=== PATIENT | female | born 1965 | race Caucasian/White ===

== ENCOUNTER 2018-12-12 23:14 | Inpatient (IN) ==
[2018-12-12] MEDS ORDERED: NITROGLYCERIN SL 0.4 MG/TAB TAB SL PRN (23:32)
[2018-12-12] MEDS ORDERED: ASPIRIN CHEW 324 MG PO STA (23:32)
[2018-12-12] MEDS ORDERED: SODIUM CHLORIDE 0.9% 500 ML IV SCH (23:45)
[2018-12-12 23:48] LABS: Basophils # (auto) 0.02 K/uL (0-0.2); Basophils % (auto) 0.2 %; Eosinophils # (auto) 0.05 K/uL (0-0.5); Eosinophils % (auto) 0.6 %; Hematocrit (blood only) 42.9 % (37-47); Hemoglobin 15.6 g/dL (12.0-16.0); Immature Granulocytes # (auto) 0.02 K/uL (0.00-0.02); Immature Granulocytes % (auto) 0.2 %; Lymphocytes # (auto) 1.51 K/uL (1.2-3.4); Mean Corpuscular Hgb Conc 36.4 g/dL (32-36); Mean Corpuscular Volume 88.8 fL (80-100); Mean Platelet Volume 10.9 fL (7.4-10.4); Monocytes # (auto) 1.07 K/uL (0.11-0.59); Monocytes % (auto) 12.1 %; Neutrophils # (auto) 6.19 K/uL (1.4-6.5); Neutrophils % (auto) 69.9 %; Platelet Count 301 K/uL (130-400); RDW Coefficient of Variation 12.5 % (11.5-14.5); RDW Standard Deviation 40.1 fL (36.4-46.3); Red Blood Count 4.83 M/uL (4.2-5.4); White Blood Count 8.86 K/uL (4.8-10.8)
[2018-12-13 00:17] LABS: Alanine Aminotransferase 22 U/L (12-78); Albumin Level 4.7 gm/dl (3.4-5.0); Aspartate Aminotransferase 13 U/L (15-37); BUN Creatinine Ratio 13.3 (10-20); Blood Urea Nitrogen 31 mg/dl (7-18); Calcium 9.4 mg/dl (8.5-10.1); Carbon Dioxide 21 mmol/L (21-32); Chloride 111 mmol/L (98-107); Creatinine Clr Calc Pharmacy 25.2 ml/min; Est GFR (African American) 26.9; Est GFR (Non-African American) 23.2; Glucose 130 mg/dl (70-99); Magnesium 2.2 mg/dl (1.8-2.4); Potassium 2.5 mmol/L (3.5-5.1); Sodium 139 mmol/L (136-145)
[2018-12-13] MEDS ORDERED: POTASSIUM CHLORIDE 10 MEQ TABCR PO STA (00:21)
[2018-12-13 00:26] LABS: Albumin Globulin Ratio 1.3 (0.9-2); Alkaline Phosphatase 93 U/L (45-117); Bilirubin,Total 0.7 mg/dl (0.2-1); Creatine Kinase 184 U/L (26-192); Globulin 3.7 gm/dl (2.5-4.0); Total Protein 8.4 gm/dl (6.4-8.2); Troponin I < 0.015 ng/ml (0-0.045)
[2018-12-13 00:48] LABS: Lyme Ab IgG w/WB Rflx Negative (Negative); Lyme Ab IgM w/WB Rflx Negative (Negative)
--- NOTE | 2018-12-13 00:52 | Emergency Department Note ---
History of Present Illness General Chief complaint: Cardiac Assessment Stated complaint: LIGHTHEADED, DIARRHEA, HEAVY CHEST, VOMITING History of Present Illness Maximum Pain Intensity: 3 This 53 yo presents to the ER complaining of chest pain, palpitations, nausea, vomiting and diarrhea Location: Generalized Quality: Weak Severity: Moderate Duration: Past few days Timing: Started a few days ago Context: Chest pain started today and patient came in Modifying factors: better with rest; worse with activity Patient states when she walks she develops chest pain. This resolves with rest. Patient took Imodium today and the diarrhea has subsided. Patient one episode of vomiting. Patient denies abdominal pain, diaphoresis, fevers, flulike illness. Patient has a history of Lyme's disease. She is worried she has this again. She continues to smoke. She has not seen a doctor in quite some time. Home Medications Home Medications Medication Instructions Recorded Confirmed Type No Known Home Medications 12/13/18 12/13/18 History Allergies Allergy/AdvReac Type Severity Reaction Status Date / Time gluten Allergy Mild intolerance Verified 12/13/18 00:53 Past Med/Surg History Medical History H/O: hysterectomy Social History Preferred Language: Maldivian Feels Safe at Home: Yes Smoking Status: Current every day smoker Review of Systems All systems reviewed & are unremarkable except as noted in HPI & below Physical Exam Vital Signs Vital Signs - 24 hr 12/12/18 23:30 12/12/18 23:43 12/13/18 00:13 Temperature 36.9 C Temperature Source Oral Sepsis Recent Fever Within 48 Hours No Sepsis Action Taken by Nursing No Action Required Pulse Rate 77 Pulse Rate [Right Finger] 73 Pulse Rhythm Regular Pulse Rhythm [Right Finger] Regular Pulse Strength Normal Pulse Strength [Right Finger] Normal Respiratory Rate 20 20 Respiratory Effort / Characteristics Non-Labored Spontaneous Non-Labored Spontaneous Respiratory Depth Normal Normal Respiratory Pattern Regular Regular Blood Pressure 135/77 Blood Pressure [Right Arm] 135/77 Blood Pressure Mean 96 Blood Pressure Mean [Right Arm] 96 Pulse Oximetry 98 98 99 Oxygen Delivery Method Room Air Room Air Room Air VITALS: Vitals are noted on the nurse's note and reviewed by myself. Vital signs stable. GENERAL: White female, in no acute distress, nondiaphoretic, well-developed well-nourished. SKIN: The skin was without rashes, erythema, edema, or bruising. There is no tenting of the skin. Capillary reflex less than 2 seconds. HEAD: Normocephalic atraumatic. EARS: External auditory canals clear, tympanic membranes pearly díaz without erythema or effusion bilaterally. EYES: Pupils equal round and reactive to light and accommodation. Conjunctivae without injection, sclerae without icterus. Extraocular movements intact. NOSE: Patent, turbinates without inflammation or discharge. No sinus tenderness. MOUTH: Mucous membranes mildly dry. Pharynx without erythema or exudate. Uvula midline. Airway patent. Tongue does not deviate. NECK: Supple without nuchal rigidity. No lymphadenopathy. No thyromegaly. Cervical spine is nontender. No JVD. HEART: Regular rate and rhythm; chest nontender to palpation LUNGS: Clear to auscultation bilaterally without wheezes, rales or rhonchi. No retractions or accessory muscle use. ABDOMEN: Positive bowel sounds x 4. Normal tympanic percussion. Soft, nontender, without masses or organomegaly. Olmos sign negative. No guarding or rebound tenderness. No CVA tenderness MUSCULOSKELETAL: No muscle atrophy, erythema, or edema noted. NEURO: Patient was alert and oriented to person place and time. Normal sensation to light and sharp touch. No focal neurological deficits. Course Administered Medications Nitroglycerin (Nitrostat) 0.4 mg SL UD PRN PRN Reason: Chest Pain Stop: 01/11/19 23:31 Last Admin: 12/12/18 23:49 Dose: 0.4 mg Documented by: [id number] Discontinued Medications Aspirin (Aspirin) 324 mg PO NOW STA Stop: 12/12/18 23:33 Last Admin: 12/12/18 23:49 Dose: 324 mg Documented by: [id number] Sodium Chloride (Nss) 500 mls @ 999 mls/hr IV .Q31M KATTY Stop: 12/13/18 00:15 Last Infusion: 12/13/18 00:21 Dose: 0 mls/hr Documented by: [id number] Admin: 12/12/18 23:49 Dose: 999 mls/hr Documented by: [id number] Potassium Chloride (Klor-Con M10) 40 meq PO NOW STA Stop: 12/13/18 00:22 Last Admin: 12/13/18 00:26 Dose: 40 meq Documented by: [id number] Medical Decision Making Medical Records Attestation: I reviewed the patient's medical records. Home Medications Current Medication List: was personally reviewed by me Laboratory Data Attestation: I reviewed the patient's lab results. Result diagrams: 12/12/18 23:36 12/12/18 23:36 Lab Results 12/12/18 12/12/18 12/12/18 Range/Units 23:36 23:36 23:36 WBC 8.86 (4.8-10.8) K/uL RBC 4.83 (4.2-5.4) M/uL Hgb 15.6 (12.0-16.0) g/dL Hct 42.9 (37-47) % MCV 88.8 (80-100) fL MCH 32.3 (25-34) pg MCHC 36.4 H (32-36) g/dL RDW Std Deviation 40.1 (36.4-46.3) fL RDW Coeff of Andrea 12.5 (11.5-14.5) % Plt Count 301 (130-400) K/uL MPV 10.9 H (7.4-10.4) fL Immature Gran % (Auto) 0.2 % Neut % (Auto) 69.9 % Lymph % (Auto) 17.0 % [place] % (Auto) 12.1 % Eos % (Auto) 0.6 % Baso % (Auto) 0.2 % Immature Gran # (Auto) 0.02 (0.00-0.02) K/uL Neut # (Auto) 6.19 (1.4-6.5) K/uL Lymph # (Auto) 1.51 (1.2-3.4) K/uL [place] # (Auto) 1.07 H (0.11-0.59) K/uL Eos # (Auto) 0.05 (0-0.5) K/uL Baso # (Auto) 0.02 (0-0.2) K/uL Sodium 139 (136-145) mmol/L Potassium 2.5 L* (3.5-5.1) mmol/L Chloride 111 H (98-107) mmol/L Carbon Dioxide 21 (21-32) mmol/L Anion Gap 6.0 (3-11) BUN 31 H (7-18) mg/dl Creatinine 2.32 H (0.6-1.2) mg/dl Est Cr Clr Drug Dosing 25.2 ml/min Est GFR ( Amer) 26.9 Est GFR (Non-Af Amer) 23.2 BUN/Creatinine Ratio 13.3 (10-20) Glucose 130 H (70-99) mg/dl Calcium 9.4 (8.5-10.1) mg/dl Magnesium 2.2 (1.8-2.4) mg/dl Total Bilirubin 0.7 (0.2-1) mg/dl AST 13 L (15-37) U/L ALT 22 (12-78) U/L Alkaline Phosphatase 93 (45-117) U/L Total Creatine Kinase 184 (26-192) U/L POC Troponin I (0-0.045) ng/ml Troponin I < 0.015 (0-0.045) ng/ml Total Protein 8.4 H (6.4-8.2) gm/dl Albumin 4.7 (3.4-5.0) gm/dl Globulin 3.7 (2.5-4.0) gm/dl Albumin/Globulin Ratio 1.3 (0.9-2) Lipase 93 (73-393) U/L TSH 3.100 (0.300-4.500) uIu/ml Lyme Disease IgG Ab Negative (Negative) Lyme Disease IgM Ab Negative (Negative) 12/12/18 Range/Units 23:42 WBC (4.8-10.8) K/uL RBC (4.2-5.4) M/uL Hgb (12.0-16.0) g/dL Hct (37-47) % MCV (80-100) fL MCH (25-34) pg MCHC (32-36) g/dL RDW Std Deviation (36.4-46.3) fL RDW Coeff of Andrea (11.5-14.5) % Plt Count (130-400) K/uL MPV (7.4-10.4) fL Immature Gran % (Auto) % Neut % (Auto) % Lymph % (Auto) % [place] % (Auto) % Eos % (Auto) % Baso % (Auto) % Immature Gran # (Auto) (0.00-0.02) K/uL Neut # (Auto) (1.4-6.5) K/uL Lymph # (Auto) (1.2-3.4) K/uL [place] # (Auto) (0.11-0.59) K/uL Eos # (Auto) (0-0.5) K/uL Baso # (Auto) (0-0.2) K/uL Sodium (136-145) mmol/L Potassium (3.5-5.1) mmol/L Chloride (98-107) mmol/L Carbon Dioxide (21-32) mmol/L Anion Gap (3-11) BUN (7-18) mg/dl Creatinine (0.6-1.2) mg/dl Est Cr Clr Drug Dosing ml/min Est GFR ( Amer) Est GFR (Non-Af Amer) BUN/Creatinine Ratio (10-20) Glucose (70-99) mg/dl Calcium (8.5-10.1) mg/dl Magnesium (1.8-2.4) mg/dl Total Bilirubin (0.2-1) mg/dl AST (15-37) U/L ALT (12-78) U/L Alkaline Phosphatase (45-117) U/L Total Creatine Kinase (26-192) U/L POC Troponin I < 0.03 (0-0.045) ng/ml Troponin I (0-0.045) ng/ml Total Protein (6.4-8.2) gm/dl Albumin (3.4-5.0) gm/dl Globulin (2.5-4.0) gm/dl Albumin/Globulin Ratio (0.9-2) Lipase (73-393) U/L TSH (0.300-4.500) uIu/ml Lyme Disease IgG Ab (Negative) Lyme Disease IgM Ab (Negative) Imaging Data Attestation: I personally reviewed and interpreted this imaging study as follows: MDM Narrative Prior records/ancillary studies reviewed. Triage Nursing notes reviewed. Additional history obtained from family. The patient's history was concerning for chest pain. Differential diagnosis: Etiologies such as cardiac ischemia, aortic dissection, pulmonary embolism, pneumonia, pneumothorax, musculoskeletal, infections, pericarditis, myocarditis, esophageal rupture, gastrointestinal, as well as others were entertained. Physical examination: As above. ER treatment provided: Aspirin, nitroglycerin, potassium, IV fluids On reassessment the patient felt better. Diagnostic interpretation by me: The electrocardiogram was normal sinus, normal intervals, T wave inversions in the inferior and lateral leads, UA present, rate of 73. Impression normal sinus rhythm with Q waves and T wave inversions interpreted by myself. Repeat EKG is unchanged. I think arrhythmia is unlikely. EKG shows normal sinus rhythm with no interval abnormalities such as WPW. There are no findings to suggest Brugada syndrome. Cardiac monitoring in the emergency department reveals no tachycardic or bradycardic dysrhythmia. Hypertrophic cardiomyopathy was considered but there are no clear historical elements pointing toward this. EKG is not suggestive. The QRS voltage is not extremely large and there are no suggestive Q waves. The labs revealed critically low potassium. Normal magnesium. Negative troponin Imaging studies: Chest x-ray with no acute consolidation, pneumothorax or free air per my interpretation HEART SCORE: Hx: high/mod/low suspicion: 1 ECG: ST depression/nonspecific changes/normal: 1 Age: Greater than 65/45-64/less than 45: 1 Risk factors: (Hypertension, hyperlipidemia, diabetes, coronary disease, tobacco use, cocaine use): 1 Troponin: Greater than 2 times normal limits/1-2 times normal limits/normal: 0 Total: 4 Consultation: A consultation was placed with the hospitalist. The case was discussed and diagnostics were reviewed. The patient was evaluated in the ER for further treatment. Exam and history seem consistent with chest pain with EKG changes that could be related to her low potassium. Patient was also in acute renal failure. She was hydrated as above. Medicine was consulted. Potassium was replaced orally. She is agreeable treatment plan of admission. First troponin is negative. She had symptoms all day. Repeat EKG is unchanged. By the evaluation outlined above emergent etiologies such as aortic dissection, pulmonary embolism, pneumonia, pneumothorax, pericarditis, myocarditis, gastrointestinal, as well as others were deemed relatively unlikely. The pt informed about the findings as listed above. All questions were answered and pleased with the treatment. Case reviewed with my attending The chart was completed utilizing [employer] recognition software. Grammatical errors, random word insertions, pronoun errors, and incomplete sentences are an occassional consequence of this system due to software limitations, ambient noise, and hardware issues. Any formal questions or concerns about the content, text, or information contained within the body of this dictation should be directly addressed to the physician quality assurance assistant for clarification. Impression & Plan Atypical chest pain, Acute hypokalemia, Acute renal failure Discharge Plan Visit Data Chief Complaint: Cardiac Assessment Stated Complaint: LIGHTHEADED, DIARRHEA, HEAVY CHEST, VOMITING ED Provider: Evie Harris ED Midlevel Provider: Bianca Avilez Discharge Problem: Atypical chest pain, Acute hypokalemia, Acute renal failure Patient Disposition: Admitted As Inpatient Condition: Fair Forms Stand Alone Forms: [employer] Prescriptions Prescriptions: No Action No Known Home Medications RF: 0 Referrals Referrals: PCP,NO [Primary Care Provider] -
--- NOTE | 2018-12-13 01:08 | History & Physical Report ---
Date of Service December 13, 2018 Assessment & Plan (1) History of Lyme disease: (2) Acute renal failure: (3) Acute hypokalemia: (4) Atypical chest pain: (5) Chest pain: We will replete her potassium, serial troponins, nephrology and cardiology consultation. 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 Appetite is Normal, positive dizziness Physical Exam Gen-AAO x 3, NAD, Afebrile Head-NCAT, EOMI, PERRLA, Anicteric Sclera, No Posterior Pharyngeal Erythema Neck-Supple, No JVD, No Thyromegaly, No Masses, No LAD, No Bruits Lungs-Clear to Auscultation Bilaterally, No Rales, No Rhonchi, No Wheezing, No Crepitus Chest-No S4, +S1, +S2, No S3, No Murmurs, No Rubs, No Gallops, No Ectopy Abdomen-Soft, Bowel Sounds Present, Non Tender, Non Distended, No Hepatomegaly, No Splenomegaly, No Palpable Masses, No Rebound, No Rigidity, No Guarding Musculoskeletal-Full Range of Motion Bilaterally, No CVAT Extremities-No Cyanosis, No Clubbing, No Edema Nuero-Cranial Nerves II-XII grossly intact, Motor WNL, DTRs WNL, Strength WNL, Non Focal Psych-Normal Mood History of Present Illness 53-year-old female with a past medical history of Lyme disease said that she started to have chest pain this morning. Was laying around all day and when she gets the chest pain will be worse. When she got up she lost her balance and just did not feel right. He sat down and starting to get a heavy chest that was 8 out of 10 in severity, she had palpitations, pounding, shortness of breath, and both hands were tingling her labs in the emergency room showed a potassium of 2.5, showed U waves she had an elevated creatinine 2.23 as well. 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 She has a gluten allergy but no drug allergies She takes no medications Primary Care Provider: NO PCP Allergies Allergy/AdvReac Type Severity Reaction Status Date / Time gluten Allergy Mild intolerance Verified 12/13/18 00:53 Home Medications Home Medications Medication Instructions Recorded Confirmed Type No Known Home Medications 12/13/18 12/13/18 History Past Med/Surg History Medical History H/O: hysterectomy Social History Preferred Language: Hungarian Feels Safe at Home: Yes Smoking Status: Current every day smoker Results & Data Vital Signs (Past 12 Hours) Vital Signs Temp Pulse Pulse Resp BP BP Pulse Ox 12/13/18 00:13 73 20 135/77 99 12/12/18 23:43 98 12/12/18 23:30 36.9 C 77 20 135/77 98 Allergies gluten Allergy (Mild, Verified 12/13/18 00:53) intolerance Height/Weight/Isolation Height 5 ft 5 in Weight 66.5 kg Chemistry 12/12/18 23:36 Sodium 139 Potassium 2.5 L* Chloride 111 H Carbon Dioxide 21 Anion Gap 6.0 BUN 31 H Creatinine 2.32 H Glucose 130 H
[2018-12-13] MEDS ORDERED: ONDANSETRON INJ 2 MG/ML 2 ML VIAL IV PRN (01:42)
[2018-12-13] MEDS ORDERED: POLYETHYLENE (MIRALAX) 17 GM PACK PO PRN (01:42)
[2018-12-13] MEDS ORDERED: SODIUM CHLORIDE 0.9% 1000ML 1,000 ML IV SCH (01:42)
[2018-12-13 02:35] LABS: Alanine Aminotransferase 18 U/L (12-78); Albumin Globulin Ratio 1.1 (0.9-2); Alkaline Phosphatase 81 U/L (45-117); Aspartate Aminotransferase 11 U/L (15-37); BUN Creatinine Ratio 16.2 (10-20); Bilirubin,Total 0.5 mg/dl (0.2-1); Blood Urea Nitrogen 30 mg/dl (7-18); Calcium 8.7 mg/dl (8.5-10.1); Carbon Dioxide 22 mmol/L (21-32); Chloride 111 mmol/L (98-107); Creatinine Clr Calc Pharmacy 31.6 ml/min; Est GFR (African American) 35.4; Est GFR (Non-African American) 30.5; Globulin 3.5 gm/dl (2.5-4.0); Glucose 94 mg/dl (70-99); Potassium 2.5 mmol/L (3.5-5.1); Sodium 140 mmol/L (136-145); Total Protein 7.5 gm/dl (6.4-8.2); Troponin I < 0.015 ng/ml (0-0.045)
[2018-12-13] MEDS: POTASSIUM CHLORIDE / WTR 10 MEQ/100 ML PLCT IV SCH ×3 (02:46→05:13)
--- NOTE | 2018-12-13 06:37 | XRay Report ---
XR chest 1V portable CLINICAL HISTORY: Atypical chest pain COMPARISON STUDY: No previous studies for comparison. FINDINGS: The cardiac and mediastinal contours are normal. There is no evidence of focal pulmonary co nsolidation. There is no evidence of failure. No pleural effusions are visualized.[ IMPRESSION: No active disease in the chest. Electronically signed by: Juvenal Cobos M.D. 12/13/2018 6:36 AM
[2018-12-13 08:19] LABS: Hemoglobin 13.5 g/dL (12.0-16.0); Mean Corpuscular Hgb Conc 34.6 g/dL (32-36); Mean Corpuscular Volume 90.1 fL (80-100); Mean Platelet Volume 10.9 fL (7.4-10.4); Platelet Count 256 K/uL (130-400); RDW Coefficient of Variation 12.7 % (11.5-14.5); RDW Standard Deviation 41.7 fL (36.4-46.3); Red Blood Count 4.33 M/uL (4.2-5.4); White Blood Count 8.21 K/uL (4.8-10.8)
[2018-12-13 08:29] LABS: Prothrombin Time 9.9 Seconds (9.0-12.0)
[2018-12-13] MEDS: ASPIRIN 81 MG ECTAB PO SCH (08:39)
[2018-12-13] MEDS: LACTATED RINGER'S 1,000 ML IV SCH ×2 (08:39→18:01)
--- NOTE | 2018-12-13 08:53 | Cardiology Consultation ---
Date of Consultation December 13, 2018 Assessment & Plan (1) Palpitation: (2) Prolonged Q-T interval on ECG: (3) Atypical chest pain: (4) Acute renal failure: (5) Acute hypokalemia: (6) Diarrhea: Patient presented to ED with 4 days of diarrheal illness, dehydration, with subsequent vomiting, palpitations, and chest discomfort. Baseline ECG abnormal however abnormalities possibly secondary to profound hypokalemia in the setting of acute renal insufficiency. Underlying ischemic heart disease or hypertrophic cardiomyopathy are also considerations. Repeat a.m. labs pending. Mildly prolonged QT also, I suspect, secondary to hypokalemia. Serum magnesium level within normal limits. No recurrent palpitations since admission. Cardiac enzymes negative x2 sets thus far without recurrent chest discomfort. Recommend cycle enzymes x3 sets. Repeat ECG this a.m. Resting 2D transthoracic echocardiogram pending at this time. Await nephrology input regarding acute insufficiency, likely related to volume depletion in the setting of diarrheal illness. Will continue to follow during hospitalization. History of Present Illness Reason for Consultation: Abnormal ECG, palpitations, chest pain, hypokalemia Requesting Physician: Dr. Levine Attending Physician: Sridhar Martins MD History of Present Illness 53-year-old female presented emergency department secondary to diarrhea, nausea, palpitations, and chest discomfort. Patient developed significant diarrhea on Saturday. States she always has some level of diarrhea due to gluten sensitivity. Over the past 4 days she has had profound diarrhea. On Saturday she attended a craft show in the heat. She became nauseated and developed palpitations with associated chest tightness. Vomited at home. Came to the emergency department for further evaluation and treatment. Acute renal insufficiency, hypokalemia, and abnormal ECG noted on presentation. ECG demonstrates diffuse T wave abnormality and mild QT prolongation. Denies any recurrent palpitations since admission. No dysrhythmias on telemetry. No recurrent chest discomfort. Cardiac enzymes negative x2 set. Resting 2D transthoracic echocardiogram pending at this time. Patient denies personal history of coronary disease, congestive heart failure, rheumatic fever as a child, diabetes, hypertension, dyslipidemia. Admits to daily tobacco use. Denies orthopnea, PND, lightheadedness, dizziness, syncope, or near syncope. Recently treated for tick bite in August 2018. Voices concern regarding current Lyme disease. Allergies Allergy/AdvReac Type Severity Reaction Status Date / Time gluten Allergy Mild intolerance Verified 12/13/18 00:53 Home Medications Home Medications Medication Instructions Recorded Confirmed Type No Known Home Medications 12/13/18 12/13/18 History Patient History Medical History H/O: hysterectomy Social History Preferred Language: Slovak Communication Ability: Effective Beliefs That Will Affect Care: None Current Living Situation: Family Feels Safe at Home: Yes Safety Concerns: Feels Safe At This Time Smoking Status: Light tobacco smoker Hx Alcohol Use: No Hx Substance Use: No Review of Systems Review of Systems: All systems reviewed & are unremarkable except as noted in HPI & below Physical Exam Physical Exam: General: NAD, AAO x3, well nourished. HEENT: Normocephalic. Atraumatic. Conjunctiva pink, no scleral icterus. Neck: No carotid bruits, the carotid upstrokes are brisk. No JVD. No HJR Heart: Regular normal S-1 and S-2 no S-3 or S-4 gallop. No murmurs or rub appreciated. PMI is not displaced. No RV heave. Lungs: Clear bilateral without rales , rhonchi, or wheeze. Abdomen: Normal bowel sounds. Soft. Nontender. No masses or organomegaly. No abdominal bruits. Extremities: No clubbing, cyanosis, or edema. Pulses: radial=2/4, Dorsalis pedis =2/4, posterior tibial=2/4. Neuro: Cranial nerves grossly intact. No focal motor deficit. Results & Data Vital Signs (Past 12 Hours) Vital Signs Temp Pulse Pulse Resp BP BP Pulse Ox 12/13/18 07:47 36.3 C L 77 18 107/67 97 12/13/18 02:47 36.8 C 68 16 139/79 95 12/13/18 02:13 68 12/13/18 01:43 36.5 C 94 H 16 114/76 97 12/13/18 01:09 73 20 145/87 H 98 12/13/18 00:13 73 20 135/77 99 12/12/18 23:43 98 12/12/18 23:30 36.9 C 77 20 135/77 98 Laboratory Results Laboratory Results - last 24 hr 12/12/18 12/12/18 12/12/18 23:36 23:36 23:36 WBC 8.86 RBC 4.83 Hgb 15.6 Hct 42.9 MCV 88.8 MCH 32.3 MCHC 36.4 H RDW Std Deviation 40.1 RDW Coeff of Andrea 12.5 Plt Count 301 MPV 10.9 H Immature Gran % (Auto) 0.2 Neut % (Auto) 69.9 Lymph % (Auto) 17.0 [place] % (Auto) 12.1 Eos % (Auto) 0.6 Baso % (Auto) 0.2 Immature Gran # (Auto) 0.02 Neut # (Auto) 6.19 Lymph # (Auto) 1.51 [place] # (Auto) 1.07 H Eos # (Auto) 0.05 Baso # (Auto) 0.02 PT INR Sodium 139 Potassium 2.5 L* Chloride 111 H Carbon Dioxide 21 Anion Gap 6.0 BUN 31 H Creatinine 2.32 H Est Cr Clr Drug Dosing 25.2 Est GFR ( Amer) 26.9 Est GFR (Non-Af Amer) 23.2 BUN/Creatinine Ratio 13.3 Glucose 130 H Calcium 9.4 Magnesium 2.2 Total Bilirubin 0.7 AST 13 L ALT 22 Alkaline Phosphatase 93 Total Creatine Kinase 184 POC Troponin I Troponin I < 0.015 Total Protein 8.4 H Albumin 4.7 Globulin 3.7 Albumin/Globulin Ratio 1.3 Lipase 93 TSH 3.100 Lyme Disease IgG Ab Negative Lyme Disease IgM Ab Negative 12/12/18 12/13/18 12/13/18 23:42 01:48 08:05 WBC 8.21 RBC 4.33 Hgb 13.5 Hct 39.0 MCV 90.1 MCH 31.2 MCHC 34.6 RDW Std Deviation 41.7 RDW Coeff of Andrea 12.7 Plt Count 256 MPV 10.9 H Immature Gran % (Auto) Neut % (Auto) Lymph % (Auto) [place] % (Auto) Eos % (Auto) Baso % (Auto) Immature Gran # (Auto) Neut # (Auto) Lymph # (Auto) [place] # (Auto) Eos # (Auto) Baso # (Auto) PT INR Sodium 140 Potassium 2.5 L* Chloride 111 H Carbon Dioxide 22 Anion Gap 7.0 BUN 30 H Creatinine 1.85 H D Est Cr Clr Drug Dosing 31.6 Est GFR ( Amer) 35.4 Est GFR (Non-Af Amer) 30.5 BUN/Creatinine Ratio 16.2 Glucose 94 Calcium 8.7 Magnesium Total Bilirubin 0.5 AST 11 L ALT 18 Alkaline Phosphatase 81 Total Creatine Kinase POC Troponin I < 0.03 Troponin I < 0.015 Total Protein 7.5 Albumin 4.0 Globulin 3.5 Albumin/Globulin Ratio 1.1 Lipase TSH Lyme Disease IgG Ab Lyme Disease IgM Ab 12/13/18 12/13/18 12/13/18 08:05 08:06 08:06 WBC RBC Hgb Hct MCV MCH MCHC RDW Std Deviation RDW Coeff of Andrea Plt Count MPV Immature Gran % (Auto) Neut % (Auto) Lymph % (Auto) [place] % (Auto) Eos % (Auto) Baso % (Auto) Immature Gran # (Auto) Neut # (Auto) Lymph # (Auto) [place] # (Auto) Eos # (Auto) Baso # (Auto) PT 9.9 INR 1.0 Sodium Pending Potassium Pending Chloride Pending Carbon Dioxide Pending Anion Gap Pending BUN Pending Creatinine Pending Est Cr Clr Drug Dosing Pending Est GFR ( Amer) Pending Est GFR (Non-Af Amer) Pending BUN/Creatinine Ratio Pending Glucose Pending Calcium Pending Magnesium Total Bilirubin AST ALT Alkaline Phosphatase Total Creatine Kinase POC Troponin I Troponin I Pending Cancelled Total Protein Albumin Globulin Albumin/Globulin Ratio Lipase TSH Lyme Disease IgG Ab Lyme Disease IgM Ab
[2018-12-13] MEDS: POTASSIUM CHLORIDE 20 MEQ TABCR PO SCH ×3 (09:03→19:59)
[2018-12-13 09:04] LABS: BUN Creatinine Ratio 19.4 (10-20); Blood Urea Nitrogen 26 mg/dl (7-18); Calcium 8.3 mg/dl (8.5-10.1); Carbon Dioxide 21 mmol/L (21-32); Chloride 118 mmol/L (98-107); Creatinine Clr Calc Pharmacy 44.4 ml/min; Est GFR (African American) 53.2; Est GFR (Non-African American) 45.9; Glucose 100 mg/dl (70-99); Potassium 2.9 mmol/L (3.5-5.1); Sodium 143 mmol/L (136-145); Troponin I < 0.015 ng/ml (0-0.045)
[2018-12-13] MEDS: HEPARIN SOD 5,000 UNIT/0.5 ML VIAL SQ SCH ×3 (09:17→22:34)
--- NOTE | 2018-12-13 10:27 | Hospitalist Progress Note ---
Date of Service December 13, 2018 Assessment & Plan (1) History of Lyme disease: (2) Acute renal failure: (3) Acute hypokalemia: (4) Atypical chest pain: (5) Chest pain: troponins negative EKG no acute ischemia echo ordered Cardiology consulted monitor Acute Renal Failure likely secondary to Prerenal Etiology from [place] - crea improving - continue LR Diarrhea - C diff negative - add Augmentin (avoiding Cipro in light of prolonged QT) Imodium PRN IV fluids Hypokalemia - repleted DVT prophylaxis Heparin SC Disposition pending Subjective ff up for chest pain, acute renal failure, diarrhea seen resting in bed, comfortable states she feels improved compared to yesterday still tired no chest pain recurrence had 2-3 loose BMs, no abdominal pain, nausea/vomiting no other symptoms Review of Systems 2 Review of Systems: All systems reviewed & are unremarkable except as noted in HPI & below Physical Exam Physical Exam: General- oriented x 3, not in distress, speaks in sentences with no effort or accessory muscle use Eyes- anicteric Neck- no JVD Lungs- clear BS BL no rales/wheezing Heart- normal rate, regular rhythm; no murmurs Abdomen- normal bowel sounds, nondistended, soft, nontender Extremities- no pretibial edema, no calf tenderness Neuro- alert, oriented x 3; no gross focal neurologic deficits Skin- warm & dry Results & Data Vital Signs (Past 12 Hours) Vital Signs Temp Pulse Pulse Resp BP BP Pulse Ox 12/13/18 07:47 36.3 C L 77 18 107/67 97 12/13/18 02:47 36.8 C 68 16 139/79 95 12/13/18 02:13 68 12/13/18 01:43 36.5 C 94 H 16 114/76 97 12/13/18 01:09 73 20 145/87 H 98 12/13/18 00:13 73 20 135/77 99 12/12/18 23:43 98 12/12/18 23:30 36.9 C 77 20 135/77 98
[2018-12-13 14:30] LABS: Troponin I < 0.015 ng/ml (0-0.045)
[2018-12-13 14:56] LABS: Blood Urea Nitrogen 23 mg/dl (7-18); Carbon Dioxide 22 mmol/L (21-32); Chloride 116 mmol/L (98-107); Creatinine Clr Calc Pharmacy 49.2 ml/min; Est GFR (African American) 60.4; Est GFR (Non-African American) 52.1; Glucose 93 mg/dl (70-99); Potassium 3.1 mmol/L (3.5-5.1); Sodium 142 mmol/L (136-145)
[2018-12-13] MEDS ORDERED: PERFLUTREN LIPID MICROSPHERE (DEFINITY) IV ONE (15:06)
--- NOTE | 2018-12-13 17:01 | Nephrology Consultation ---
Date of Consultation December 13, 2018 Assessment & Plan (1) Acute renal failure: Patient with MYNOR likely due to pre renal azotemia in setting of diarrhoea and poor po intake combined with NSAID use. No baseline cr. Cr improving with IV fluids. I have changed to plasmalyte at 100ml/hr. Will stop saline. I have told her to avoid Motrin. Monitor renal function with daily BMP (2) Metabolic acidosis: She has mild metabolic acidosis due to MYNOR and diarrheoa. Will use ringers lactate. No need for bicarbonate supplementation (3) Acute hypokalemia: Due to diarrhoea. Will give kcl 40meq tid. Monitor with daily BMP History of Present Illness Reason for Consultation: MYNOR, electrolyte imbalance Requesting Physician: Julianna Martinez MD Attending Physician: Sridhar Martins MD History of Present Illness This is a 53yr old female with History of Lyme disease, does not see doctors frequently who was admitted on 12/12 with chest pain found to have MYNOR and severe hypokalemia. She had a cr of 2.3 and K of 2. We do not have baseline cr. She does not think she has kidney problems before. She reports having diarrhoea since saturday. She progressively became weak and could not even stand. She also vomited a couple of time. She took Motrin for headache yesterday. She has been on antibiotics in the past for lyme. No recent antibiotics. Diarrhoea is slowing down but had a loose BM this morning. No SOB or leg swelling. No urinary symptoms. No vomiting today. She is eating but not much. She got KCL and fluids in the ED. Allergies Allergy/AdvReac Type Severity Reaction Status Date / Time gluten Allergy Mild intolerance Verified 12/13/18 00:53 Home Medications Home Medications Medication Instructions Recorded Confirmed Type No Known Home Medications 12/13/18 12/13/18 History Patient History Medical History H/O: hysterectomy Social History Preferred Language: Ukrainian Communication Ability: Effective Beliefs That Will Affect Care: None Current Living Situation: Family Feels Safe at Home: Yes Safety Concerns: Feels Safe At This Time Smoking Status: Light tobacco smoker Hx Alcohol Use: No Hx Substance Use: No Review of Systems Review of Systems: All systems reviewed & are unremarkable except as noted in HPI & below Physical Exam Physical Exam: General exam: Appears comfortable, no acute distress HEENT: Pupils are equal and reactive to light Neck: No JVD, neck is supple trachea is midline Respiratory system: Clear breath sounds bilaterally. Gastrointestinal: Abdomen is soft, non distended, non tender, bowel sounds are present CVS: Regular rate and rhythm. No murmurs, rubs or gallops Musculoskeletal: No joint or muscle tenderness Extremities: Non tender, no edema, peripheral pulses are present Neuro: Oriented, no tremors, no focal neurological deficits Skin: No rashes Results & Data Vital Signs (Past 12 Hours) Vital Signs Temp Pulse Resp BP Pulse Ox 12/13/18 15:15 36.5 C 65 18 114/68 98 12/13/18 11:03 36.3 C L 66 18 122/71 97 12/13/18 07:47 36.3 C L 77 18 107/67 97 Laboratory Results Laboratory Results - last 24 hr 12/12/18 12/12/18 12/12/18 23:36 23:36 23:36 WBC 8.86 RBC 4.83 Hgb 15.6 Hct 42.9 MCV 88.8 MCH 32.3 MCHC 36.4 H RDW Std Deviation 40.1 RDW Coeff of Andrea 12.5 Plt Count 301 MPV 10.9 H Immature Gran % (Auto) 0.2 Neut % (Auto) 69.9 Lymph % (Auto) 17.0 [place] % (Auto) 12.1 Eos % (Auto) 0.6 Baso % (Auto) 0.2 Immature Gran # (Auto) 0.02 Neut # (Auto) 6.19 Lymph # (Auto) 1.51 [place] # (Auto) 1.07 H Eos # (Auto) 0.05 Baso # (Auto) 0.02 PT INR Sodium 139 Potassium 2.5 L* Chloride 111 H Carbon Dioxide 21 Anion Gap 6.0 BUN 31 H Creatinine 2.32 H Est Cr Clr Drug Dosing 25.2 Est GFR ( Amer) 26.9 Est GFR (Non-Af Amer) 23.2 BUN/Creatinine Ratio 13.3 Glucose 130 H Calcium 9.4 Magnesium 2.2 Total Bilirubin 0.7 AST 13 L ALT 22 Alkaline Phosphatase 93 Total Creatine Kinase 184 POC Troponin I Troponin I < 0.015 Total Protein 8.4 H Albumin 4.7 Globulin 3.7 Albumin/Globulin Ratio 1.3 Lipase 93 TSH 3.100 Stl C. diff Tox B Gene Lyme Disease IgG Ab Negative Lyme Disease IgM Ab Negative 12/12/18 12/13/18 12/13/18 23:42 01:48 08:05 WBC 8.21 RBC 4.33 Hgb 13.5 Hct 39.0 MCV 90.1 MCH 31.2 MCHC 34.6 RDW Std Deviation 41.7 RDW Coeff of Andrea 12.7 Plt Count 256 MPV 10.9 H Immature Gran % (Auto) Neut % (Auto) Lymph % (Auto) [place] % (Auto) Eos % (Auto) Baso % (Auto) Immature Gran # (Auto) Neut # (Auto) Lymph # (Auto) [place] # (Auto) Eos # (Auto) Baso # (Auto) PT INR Sodium 140 Potassium 2.5 L* Chloride 111 H Carbon Dioxide 22 Anion Gap 7.0 BUN 30 H Creatinine 1.85 H D Est Cr Clr Drug Dosing 31.6 Est GFR ( Amer) 35.4 Est GFR (Non-Af Amer) 30.5 BUN/Creatinine Ratio 16.2 Glucose 94 Calcium 8.7 Magnesium Total Bilirubin 0.5 AST 11 L ALT 18 Alkaline Phosphatase 81 Total Creatine Kinase POC Troponin I < 0.03 Troponin I < 0.015 Total Protein 7.5 Albumin 4.0 Globulin 3.5 Albumin/Globulin Ratio 1.1 Lipase TSH Stl C. diff Tox B Gene Lyme Disease IgG Ab Lyme Disease IgM Ab 12/13/18 12/13/18 12/13/18 08:05 08:06 08:06 WBC RBC Hgb Hct MCV MCH MCHC RDW Std Deviation RDW Coeff of Andrea Plt Count MPV Immature Gran % (Auto) Neut % (Auto) Lymph % (Auto) [place] % (Auto) Eos % (Auto) Baso % (Auto) Immature Gran # (Auto) Neut # (Auto) Lymph # (Auto) [place] # (Auto) Eos # (Auto) Baso # (Auto) PT 9.9 INR 1.0 Sodium 143 Potassium 2.9 L D Chloride 118 H Carbon Dioxide 21 Anion Gap 4.0 BUN 26 H Creatinine 1.32 H D Est Cr Clr Drug Dosing 44.4 Est GFR ( Amer) 53.2 Est GFR (Non-Af Amer) 45.9 BUN/Creatinine Ratio 19.4 Glucose 100 H Calcium 8.3 L Magnesium Total Bilirubin AST ALT Alkaline Phosphatase Total Creatine Kinase POC Troponin I Troponin I < 0.015 Cancelled Total Protein Albumin Globulin Albumin/Globulin Ratio Lipase TSH Stl C. diff Tox B Gene Lyme Disease IgG Ab Lyme Disease IgM Ab 12/13/18 12/13/18 12/13/18 11:13 13:57 13:57 WBC RBC Hgb Hct MCV MCH MCHC RDW Std Deviation RDW Coeff of Andrea Plt Count MPV Immature Gran % (Auto) Neut % (Auto) Lymph % (Auto) [place] % (Auto) Eos % (Auto) Baso % (Auto) Immature Gran # (Auto) Neut # (Auto) Lymph # (Auto) [place] # (Auto) Eos # (Auto) Baso # (Auto) PT INR Sodium 142 Cancelled Potassium 3.1 L Cancelled Chloride 116 H Cancelled Carbon Dioxide 22 Cancelled Anion Gap 4.0 Cancelled BUN 23 H Cancelled Creatinine 1.19 Cancelled Est Cr Clr Drug Dosing 49.2 Cancelled Est GFR ( Amer) 60.4 Cancelled Est GFR (Non-Af Amer) 52.1 Cancelled BUN/Creatinine Ratio 19.0 Cancelled Glucose 93 Cancelled Calcium 8.0 L Cancelled Magnesium Total Bilirubin AST ALT Alkaline Phosphatase Total Creatine Kinase POC Troponin I Troponin I < 0.015 Total Protein Albumin Globulin Albumin/Globulin Ratio Lipase TSH Stl C. diff Tox B Gene Negative Cdiff Gene Lyme Disease IgG Ab Lyme Disease IgM Ab
[2018-12-13] MEDS: AMOXICILLIN/CLAVULANATE 875 MG TAB PO SCH (18:02)
[2018-12-13 20:38] LABS: BUN Creatinine Ratio 18.8 (10-20); Calcium 8.1 mg/dl (8.5-10.1); Est GFR (African American) 81.3; Est GFR (Non-African American) 70.2; Potassium 3.5 mmol/L (3.5-5.1)
[2018-12-14] MEDS: LACTATED RINGER'S 1,000 ML IV SCH (02:21)
[2018-12-14] MEDS: HEPARIN SOD 5,000 UNIT/0.5 ML VIAL SQ SCH ×3 (04:56→21:10)
[2018-12-14] MEDS: ASPIRIN 81 MG ECTAB PO SCH (07:37)
[2018-12-14] MEDS: POTASSIUM CHLORIDE 20 MEQ TABCR PO SCH ×3 (07:37→20:25)
[2018-12-14] MEDS: AMOXICILLIN/CLAVULANATE 875 MG TAB PO SCH (07:37)
[2018-12-14] MEDS: LOPERAMIDE HCL 2 MG CAP PO PRN (07:40)
[2018-12-14] MEDS ORDERED: PROMETHAZINE HCL 12.5 MG in SODIUM CHLORIDE 0.9% 50 ML IV PRN (08:08)
[2018-12-14 08:12] LABS: Basophils # (auto) 0.01 K/uL (0-0.2); Basophils % (auto) 0.2 %; Eosinophils # (auto) 0.06 K/uL (0-0.5); Eosinophils % (auto) 1.4 %; Hematocrit (blood only) 35.1 % (37-47); Hemoglobin 11.8 g/dL (12.0-16.0); Immature Granulocytes # (auto) 0.01 K/uL (0.00-0.02); Immature Granulocytes % (auto) 0.2 %; Lymphocytes # (auto) 1.44 K/uL (1.2-3.4); Lymphocytes % (auto) 33.1 %; Mean Corpuscular Hgb Conc 33.6 g/dL (32-36); Mean Corpuscular Volume 93.9 fL (80-100); Mean Platelet Volume 10.6 fL (7.4-10.4); Monocytes # (auto) 0.61 K/uL (0.11-0.59); Neutrophils # (auto) 2.22 K/uL (1.4-6.5); Neutrophils % (auto) 51.1 %; Platelet Count 217 K/uL (130-400); RDW Standard Deviation 45.1 fL (36.4-46.3); Red Blood Count 3.74 M/uL (4.2-5.4); White Blood Count 4.35 K/uL (4.8-10.8)
[2018-12-14 08:36] LABS: Calcium 8.3 mg/dl (8.5-10.1); Est GFR (African American) 103.8; Est GFR (Non-African American) 89.6; Magnesium 1.9 mg/dl (1.8-2.4); Potassium 3.6 mmol/L (3.5-5.1)
[2018-12-14] MEDS: CIPROFLOXACIN 400 MG/200 ML BAG IV SCH ×2 (08:49→21:10)
--- NOTE | 2018-12-14 11:00 | Nephrology Progress Note ---
Date of Service December 14, 2018 Assessment & Plan (1) Acute renal failure: Patient with MYNOR likely due to pre renal azotemia in setting of diarrhoea and poor po intake combined with NSAID use. Renal function is back to baseline. Will stop IV fluids. I have told her to avoid Motrin. Monitor renal function with daily BMP (2) Metabolic acidosis: She has mild metabolic acidosis due to MYNOR and diarrhoea. Improved with IV fluids. No need for bicarbonate supplementation (3) Acute hypokalemia: Due to diarrhoea. Will continue Kcl 40meq tid as long as she has diarrhea. Monitor with daily BMP Subjective Patient seen in follow-up for acute kidney injury and electrolyte abnormalities. She feels better this morning. No shortness of breath. Still has diarrhea several bowel movements this morning. She is now on liquid diet. Review of Systems Review of Systems: All systems reviewed & are unremarkable except as noted in HPI & below Physical Exam Physical Exam: General exam: Appears comfortable, no acute distress HEENT: Pupils are equal and reactive to light Neck: No JVD, neck is supple trachea is midline Respiratory system: Clear breath sounds bilaterally. Gastrointestinal: Abdomen is soft, non distended, non tender, bowel sounds are present CVS: Regular rate and rhythm. No murmurs, rubs or gallops Musculoskeletal: No joint or muscle tenderness Extremities: Non tender, no edema, peripheral pulses are present Neuro: Oriented, no tremors, no focal neurological deficits Skin: No rashes Results & Data Vital Signs (Past 12 Hours) Vital Signs Temp Pulse Resp BP BP Pulse Ox 12/14/18 07:42 36.7 C 61 17 103/61 98 12/14/18 03:20 36.4 C L 59 L 16 120/63 97 12/13/18 23:11 36.4 C L 76 18 114/69 95 Laboratory Results Laboratory Results - last 24 hr 12/13/18 12/13/18 12/13/18 11:13 13:57 13:57 WBC RBC Hgb Hct MCV MCH MCHC RDW Std Deviation RDW Coeff of Andrea Plt Count MPV Immature Gran % (Auto) Neut % (Auto) Lymph % (Auto) [place] % (Auto) Eos % (Auto) Baso % (Auto) Immature Gran # (Auto) Neut # (Auto) Lymph # (Auto) [place] # (Auto) Eos # (Auto) Baso # (Auto) Sodium 142 Cancelled Potassium 3.1 L Cancelled Chloride 116 H Cancelled Carbon Dioxide 22 Cancelled Anion Gap 4.0 Cancelled BUN 23 H Cancelled Creatinine 1.19 Cancelled Est Cr Clr Drug Dosing 49.2 Cancelled Est GFR ( Amer) 60.4 Cancelled Est GFR (Non-Af Amer) 52.1 Cancelled BUN/Creatinine Ratio 19.0 Cancelled Glucose 93 Cancelled Calcium 8.0 L Cancelled Magnesium Troponin I < 0.015 Stl C. diff Tox B Gene Negative Cdiff Gene 12/13/18 12/14/18 12/14/18 20:13 07:58 07:58 WBC 4.35 L RBC 3.74 L Hgb 11.8 L Hct 35.1 L MCV 93.9 MCH 31.6 MCHC 33.6 RDW Std Deviation 45.1 RDW Coeff of Andrea 13.0 Plt Count 217 MPV 10.6 H Immature Gran % (Auto) 0.2 Neut % (Auto) 51.1 Lymph % (Auto) 33.1 [place] % (Auto) 14.0 Eos % (Auto) 1.4 Baso % (Auto) 0.2 Immature Gran # (Auto) 0.01 Neut # (Auto) 2.22 Lymph # (Auto) 1.44 [place] # (Auto) 0.61 H Eos # (Auto) 0.06 Baso # (Auto) 0.01 Sodium 142 147 H Potassium 3.5 3.6 Chloride 118 H 116 H Carbon Dioxide 21 24 Anion Gap 3.0 7.0 BUN 18 12 Creatinine 0.93 0.76 Est Cr Clr Drug Dosing 63.0 77.0 Est GFR ( Amer) 81.3 103.8 Est GFR (Non-Af Amer) 70.2 89.6 BUN/Creatinine Ratio 18.8 16.0 Glucose 91 100 H Calcium 8.1 L 8.3 L Magnesium 1.9 Troponin I Stl C. diff Tox B Gene
[2018-12-14] MEDS: LACTOBACILLUS ACIDOPHILUS (FLORANEX) TAB PO SCH ×2 (11:48→16:51)
--- NOTE | 2018-12-14 12:22 | Cardiology Progress Note ---
Date of Service December 14, 2018 Assessment & Plan (1) Apical variant hypertrophic cardiomyopathy: (2) Palpitation: (3) Prolonged Q-T interval on ECG: (4) Atypical chest pain: (5) Acute renal failure: (6) Acute hypokalemia: (7) Diarrhea: Patient presented to ED with 4 days of diarrheal illness, dehydration, with subsequent vomiting, palpitations, and chest discomfort. Baseline ECG abnormal in the setting of hypokalemia. Resting 2D transthoracic echocardiogram suggestive of apical hypertrophy likely contributing to baseline ECG abnormalities. No dysrhythmias recorded since admission. No recurrent palpitations or chest discomfort reported by patient. Cardiac enzymes are negative. QT interval has normalized. We will add low-dose beta-rebecca, Toprol-XL 12.5 mg daily. Plans for outpatient 14-day ZIO monitor and exercise stress echocardiography. Subjective Patient seen and examined at the bedside. No dysrhythmias on telemetry. ECG normalized. Serum potassium now within normal limits. Creatinine trending downward. Patient reports significant diarrhea overnight. Echocardiogram demonstrates preserved LV systolic function without regional wall motion abnormality. Apical hypertrophy noted. Offers no other concerns/complaints at this time. Review of Systems Review of Systems: All systems reviewed & are unremarkable except as noted in HPI & below Physical Exam Physical Exam: General: NAD, AAO x3, well nourished. HEENT: Normocephalic. Atraumatic. Conjunctiva pink, no scleral icterus. Neck: No carotid bruits, the carotid upstrokes are brisk. No JVD. No HJR Heart: Regular normal S-1 and S-2 no S-3 or S-4 gallop. No murmurs or rub appreciated. PMI is not displaced. No RV heave. Lungs: Clear bilateral without rales , rhonchi, or wheeze. Abdomen: Normal bowel sounds. Soft. Nontender. No masses or organomegaly. No abdominal bruits. Extremities: No clubbing, cyanosis, or edema. Pulses: radial=2/4, Dorsalis pedis =2/4, posterior tibial=2/4. Neuro: Cranial nerves grossly intact. No focal motor deficit. Results & Data Vital Signs (Past 12 Hours) Vital Signs Temp Pulse Resp BP BP Pulse Ox 12/14/18 11:24 36.4 C L 57 L 18 113/67 99 12/14/18 07:42 36.7 C 61 17 103/61 98 12/14/18 03:20 36.4 C L 59 L 16 120/63 97
[2018-12-14] MEDS: METOPROLOL SUCC 25MG EXT REL TAB PO SCH (13:00)
--- NOTE | 2018-12-14 17:13 | Hospitalist Progress Note ---
Date of Service December 14, 2018 Assessment & Plan (1) History of Lyme disease: (2) Acute renal failure: (3) Acute hypokalemia: (4) Atypical chest pain: (5) Chest pain: troponins negative EKG no acute ischemia echo(+) apical hypertrophy Cardiology consulted metoprolol XL 12.5mg po daily ASA 81mg po daily outpatient exercise stress test and 14 day Zio patch monitoring Acute Renal Failure likely secondary to Prerenal Etiology from Diarrhea - crea normalized after IV LR given Diarrhea - still persistent - C diff negative - stool cultures ordered: pending - CIpro BID Imodium PRN clear liquid diet Hypokalemia - repleted DVT prophylaxis Heparin SC Disposition pending Subjective ff up for diarrhea, acute renal failure, chest pain seen sitting up in bed, comfortable having breakfast 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, nausea, chills denies chest pain, dyspnea, palpitations, dizziness no other symptoms Review of Systems Review of Systems: All systems reviewed & are unremarkable except as noted in HPI & below Physical Exam Physical Exam: General- oriented x 3, not in distress, speaks in sentences with no effort or accessory muscle use Eyes- anicteric Neck- no JVD Lungs- clear BS BL Heart- normal rate, regular rhythm; no murmurs Abdomen- (+) hyperactive bowel sounds, nondistended, soft, nontender Extremities- no pretibial edema, no calf tenderness Neuro- alert, oriented x 3; no gross focal neurologic deficits Skin- warm & dry Results & Data Vital Signs (Past 12 Hours) Vital Signs Temp Pulse Resp BP BP Pulse Ox 12/14/18 15:18 36.6 C 57 L 19 102/69 98 12/14/18 11:24 36.4 C L 57 L 18 113/67 99 12/14/18 07:42 36.7 C 61 17 103/61 98 Laboratory Results Laboratory Results - last 24 hr 12/13/18 12/14/18 12/14/18 20:13 07:58 07:58 WBC 4.35 L RBC 3.74 L Hgb 11.8 L Hct 35.1 L MCV 93.9 MCH 31.6 MCHC 33.6 RDW Std Deviation 45.1 RDW Coeff of Andrea 13.0 Plt Count 217 MPV 10.6 H Immature Gran % (Auto) 0.2 Neut % (Auto) 51.1 Lymph % (Auto) 33.1 [place] % (Auto) 14.0 Eos % (Auto) 1.4 Baso % (Auto) 0.2 Immature Gran # (Auto) 0.01 Neut # (Auto) 2.22 Lymph # (Auto) 1.44 [place] # (Auto) 0.61 H Eos # (Auto) 0.06 Baso # (Auto) 0.01 Sodium 142 147 H Potassium 3.5 3.6 Chloride 118 H 116 H Carbon Dioxide 21 24 Anion Gap 3.0 7.0 BUN 18 12 Creatinine 0.93 0.76 Est Cr Clr Drug Dosing 63.0 77.0 Est GFR ( Amer) 81.3 103.8 Est GFR (Non-Af Amer) 70.2 89.6 BUN/Creatinine Ratio 18.8 16.0 Glucose 91 100 H Calcium 8.1 L 8.3 L Magnesium 1.9
[2018-12-15] MEDS: HEPARIN SOD 5,000 UNIT/0.5 ML VIAL SQ SCH (04:55)
[2018-12-15 06:12] LABS: BUN Creatinine Ratio 9.6 (10-20); Calcium 8.2 mg/dl (8.5-10.1); Creatinine Clr Calc Pharmacy 80.2 ml/min; Potassium 4.4 mmol/L (3.5-5.1)
[2018-12-15] MEDS: ASPIRIN 81 MG ECTAB PO SCH (07:43)
[2018-12-15] MEDS: POTASSIUM CHLORIDE 20 MEQ TABCR PO SCH ×3 (07:43→19:59)
[2018-12-15] MEDS: METOPROLOL SUCC 25MG EXT REL TAB PO SCH (07:44)
[2018-12-15] MEDS: LACTOBACILLUS ACIDOPHILUS (FLORANEX) TAB PO SCH ×3 (07:44→16:23)
[2018-12-15] MEDS: CIPROFLOXACIN 500 MG TAB PO SCH ×2 (09:23→19:59)
--- NOTE | 2018-12-15 09:49 | Nephrology Progress Note ---
Date of Service December 15, 2018 Assessment & Plan (1) Acute renal failure: Patient with MYNOR likely due to pre renal azotemia in setting of diarrhoea and poor po intake combined with NSAID use. Renal function is back to baseline. I have told her to avoid Motrin. Monitor renal function with daily BMP. Renal will sign off. Please call if additional questions or concerns (2) Metabolic acidosis: She has mild metabolic acidosis due to MYNOR and diarrhoea. Improved with IV fluids. No need for bicarbonate supplementation (3) Acute hypokalemia: Due to diarrhoea. K improved 4.4 today. Will continue Kcl 40meq tid as long as she has diarrhea. Monitor with daily BMP. Subjective Patient seen in follow-up for acute kidney injury and hypokalemia. She still has diarrhea but no vomiting. She also has abdominal pain. No urinary symptoms. Review of Systems Review of Systems: All systems reviewed & are unremarkable except as noted in HPI & below Physical Exam Physical Exam: General exam: Appears comfortable, no acute distress HEENT: Pupils are equal and reactive to light Neck: No JVD, neck is supple trachea is midline Respiratory system: Clear breath sounds bilaterally. Gastrointestinal: Abdomen is soft, non distended, non tender, bowel sounds are present CVS: Regular rate and rhythm. No murmurs, rubs or gallops Musculoskeletal: No joint or muscle tenderness Extremities: Non tender, no edema, peripheral pulses are present Neuro: Oriented, no tremors, no focal neurological deficits Skin: No rashes Results & Data Vital Signs (Past 12 Hours) Vital Signs Temp Pulse Pulse Resp BP Pulse Ox 12/15/18 07:13 36.5 C 59 L 17 113/60 97 12/15/18 03:31 36.4 C L 56 L 15 111/64 97 12/14/18 23:47 36.4 C L 55 L 16 103/61 98 12/14/18 23:06 57 L Laboratory Results Laboratory Results - last 24 hr 12/15/18 05:23 Sodium 145 Potassium 4.4 D Chloride 115 H Carbon Dioxide 27 Anion Gap 3.0 BUN 7 D Creatinine 0.73 Est Cr Clr Drug Dosing 80.2 Est GFR ( Amer) 109.0 Est GFR (Non-Af Amer) 94.0 BUN/Creatinine Ratio 9.6 L Glucose 89 Calcium 8.2 L
[2018-12-15] MEDS: LOPERAMIDE HCL 2 MG CAP PO PRN (10:55)
--- NOTE | 2018-12-15 11:30 | Gastroenterology Progress Note ---
Date of Service December 15, 2018 Subjective Ms. Monica Pratt is a 53 yr old female with a hx of cardiomyopathy, QT prolongation, Lyme Disease who was admitted on Results & Data Vital Signs (Past 12 Hours) Vital Signs Temp Pulse Pulse Resp BP Pulse Ox 12/15/18 08:00 59 L 12/15/18 07:13 36.5 C 59 L 17 113/60 97 12/15/18 03:31 36.4 C L 56 L 15 111/64 97 12/14/18 23:47 36.4 C L 55 L 16 103/61 98
[2018-12-15 11:33] LABS: iSTAT Ionized Calcium 1.22 mmol/l (1.12-1.32)
[2018-12-15 11:34] LABS: iSTAT Hemoglobin 15.6 g/dl (12.0-16.0)
--- NOTE | 2018-12-15 11:34 | Gastrointestinal Consultation ---
Date of Consultation December 15, 2018 Assessment & Plan (1) Diarrhea: Possible causes of diarrhea include Celiac, infectious, microscopic colitis and IBD. Will plan for EGD and colonoscopy tomorrow. Further recommendations to follow tomorrow's endoscopy. Present on Admission?: Yes Supervising Physician Co-Signing Physician Notes I saw and evaluated the patient. She has a history of celiac disease diagnosed by serologies over 10 years ago. She is never been seen by gastroneurologist. She is referred to us for evaluation of which is been ongoing for several months. Of note the patient is on [place] at home. Physical examination No obvious distress, pleasant appearing female No abdominal tenderness Impression: Patient with a history of celiac disease now with diarrhea. Given the history of [place] I would suggest stool studies for Giardia, culture ova parasites and C. difficile. We are certainly happy to pursue upper endoscopy and colonoscopy for further evaluation of her symptoms. History of Present Illness Reason for Consultation: diarrhea Requesting Physician: Dr. Martins Attending Physician: Sridhar Martins MD History of Present Illness Ms. Monica Pratt is a 53 yr old female with a hx of Celiac disease, Lyme Disease who was admitted on 12/12 for chest pain, acute on chronic diarrhea (x4 days at that point) and is being treated for MYNOR secondary to NSAID use and diarrhea. Also dx'ed with with apical variant hypertrophic cardiomyopathy, QT prolongation on this admission. The pt tells us that she was diagnosed with celiac disease 2 or 3 years ago by serology and has adhered to a gluten free diet since that time. Despite this, she continues with 2 loose BMs/day at baseline. Then, last Sat (6 days ago now), she began with frequent, loose liquid BMs, up to 10 a day, including night time wakening defecation. She is not aware of any suspect foods, has not been travelling and no family members are sick. She does have well water. There has not been any blood in the BMs. Abdomen is uncomfortable but not painful. Hypokalemia was corrected: 2.5->4.4. Cr has improved from 2.3->0.7. She is hemodynamically stable. She is being treated with Cipro. She has never undergone EGD or colonoscopy. Allergies Allergy/AdvReac Type Severity Reaction Status Date / Time gluten Allergy Mild intolerance Verified 12/13/18 00:53 Home Medications Home Medications Medication Instructions Recorded Confirmed Type No Known Home Medications 12/13/18 12/13/18 History Patient History Medical History H/O: hysterectomy Social History Preferred Language: Greek Communication Ability: Effective Beliefs That Will Affect Care: None Current Living Situation: Family Feels Safe at Home: Yes Safety Concerns: Feels Safe At This Time Smoking Status: Light tobacco smoker Hx Alcohol Use: No Hx Substance Use: No Review of Systems Review of Systems: ROS: Gen: Denies weakness, fevers, weight loss Eyes: No eye redness, or pain, no recent vision changes Resp: No SOB, no cough Cardio: No palpitations/irregular beats, no chest pain GI: + diarrhea, nausea, one episode of vomiting last week. : Denies pain on urination Skin: No jaundice, itching or new rashes Physical Exam Constitutional: WD/WN, vitals as above Eyes: PERRL, conjunctivae normal, anicteric sclerae ENMT: external ear and nose normal, oropharynx normal Neck: trachea midline, no thyromegaly Respiratory: normal respiratory effort, lungs clear to auscultation Cardiovascular: RRR, no murmur, no edema Gastrointestinal (Abdomen): normal bowel sounds, soft, nontender, no hepatosplenomegaly Skin: no rashes, warm and dry Neurologic: PERRL, EOMI, accommodation nl, no face palsy, no dysarthria Psychiatric: A+Ox3, euthymic affect Lymphatic: no cervical or axillary lymphadenopathy Results & Data Vital Signs (Past 12 Hours) Vital Signs Temp Pulse Pulse Resp BP Pulse Ox 12/15/18 11:29 36.5 C 49 L 16 107/66 96 12/15/18 08:00 59 L 12/15/18 07:13 36.5 C 59 L 17 113/60 97 12/15/18 03:31 36.4 C L 56 L 15 111/64 97 12/14/18 23:47 36.4 C L 55 L 16 103/61 98
--- NOTE | 2018-12-15 11:51 | Cardiology Progress Note ---
Date of Service December 15, 2018 Assessment & Plan (1) Apical variant hypertrophic cardiomyopathy: (2) Palpitation: (3) Prolonged Q-T interval on ECG: (4) Atypical chest pain: (5) Acute renal failure: (6) Acute hypokalemia: (7) Diarrhea: Patient feeling well from a cardiovascular perspective. ECG abnormalities have resolved. No dysrhythmias on telemetry. Echocardiographic findings of apical hypertrophy discussed with patient at bedside. Recommend outpatient 14- day ZIO monitor and exercise stress echocardiography for further evaluation of atypical chest discomfort. Will not add beta-rebecca currently due to sinus bradycardia. Patient stable for discharge from a cardiovascular perspective. I will see her back for outpatient follow-up in 2 to 4 weeks. Subjective Patient feeling well from a cardiovascular perspective. No palpitations or chest discomfort. Telemetry demonstrates sinus rhythm. T wave abnormality has resolved per repeat ECG. Patient continues to report diarrhea. Offers no other concerns/complaints this time. Review of Systems Review of Systems: All systems reviewed & are unremarkable except as noted in HPI & below Physical Exam Physical Exam: General: NAD, AAO x3, well nourished. HEENT: Normocephalic. Atraumatic. Conjunctiva pink, no scleral icterus. Neck: No carotid bruits, the carotid upstrokes are brisk. No JVD. No HJR Heart: Regular normal S-1 and S-2 no S-3 or S-4 gallop. No murmurs or rub appreciated. PMI is not displaced. No RV heave. Lungs: Clear bilateral without rales , rhonchi, or wheeze. Abdomen: Normal bowel sounds. Soft. Nontender. No masses or organomegaly. No abdominal bruits. Extremities: No clubbing, cyanosis, or edema. Pulses: radial=2/4, Dorsalis pedis =2/4, posterior tibial=2/4. Neuro: Cranial nerves grossly intact. No focal motor deficit. Results & Data Vital Signs (Past 12 Hours) Vital Signs Temp Pulse Pulse Resp BP Pulse Ox 12/15/18 11:29 36.5 C 49 L 16 107/66 96 12/15/18 08:00 59 L 12/15/18 07:13 36.5 C 59 L 17 113/60 97 12/15/18 03:31 36.4 C L 56 L 15 111/64 97
[2018-12-15] MEDS: LACTATED RINGER'S 1,000 ML IV SCH (12:18)
[2018-12-15] MEDS: LAVAGE SOLUTION 4000ML PO SCH (16:48)
--- NOTE | 2018-12-15 17:10 | Hospitalist Progress Note ---
Date of Service December 15, 2018 Assessment & Plan (1) Chest pain: troponins negative EKG no acute ischemia echo(+) apical hypertrophy Cardiology consulted metoprolol XL 12.5mg po daily ASA 81mg po daily outpatient exercise stress test and 14 day Zio patch monitoring Acute Renal Failure likely secondary to Prerenal Etiology from Diarrhea - crea normalized after IV LR given Diarrhea - still persistent despite being on Cipro twice daily and Imodium as needed - C diff negative - stool cultures negative -We will consult GI, for persistent diarrhea -Continue Cipro twice daily, Imodium as needed Hypokalemia -Continue p.o. potassium DVT prophylaxis Heparin SC Disposition pending Subjective Follow-up for diarrhea, acute renal failure, chest pain Seen resting in bed, comfortable, not in distress Still having loose bowel movements about 4 episodes overnight, 3 episodes of this morning No chills, abdominal pain, nausea, appetite is good No recurrence of chest pain, no shortness of breath, dizziness No problems with urination Denies other symptoms Review of Systems Review of Systems: All systems reviewed & are unremarkable except as noted in HPI & below Physical Exam Physical Exam: General- oriented x 3, not in distress, speaks in sentences with no effort or accessory muscle use Eyes- anicteric Neck- no JVD Lungs- clear BS,, no crackles, no wheezing bilaterally Heart- normal rate, regular rhythm; no murmurs Abdomen- normal bowel sounds, no distention, no tenderness Extremities- no pretibial edema, no calf tenderness Neuro- alert, oriented x 3; no gross focal neurologic deficits Skin- warm & dry Results & Data Vital Signs (Past 12 Hours) Vital Signs Temp Pulse Pulse Resp BP Pulse Ox 12/15/18 15:37 36.6 C 56 L 20 101/55 L 98 12/15/18 14:55 58 L 12/15/18 11:29 36.5 C 49 L 16 107/66 96 12/15/18 08:00 59 L 12/15/18 07:13 36.5 C 59 L 17 113/60 97 Laboratory Results Laboratory Results - last 24 hr 12/12/18 12/15/18 23:45 05:23 POC Hgb 15.6 POC Hct 46 POC Sodium 142 Sodium 145 POC Potassium 2.5 L* Potassium 4.4 D POC Chloride 107 Chloride 115 H Carbon Dioxide 27 POC Total CO2 19 L Anion Gap 3.0 POC Anion Gap 19.0 POC BUN 33 H BUN 7 D Creatinine 0.73 POC Creatinine 2.4 H Est Cr Clr Drug Dosing 80.2 Est GFR ( Amer) 109.0 Est GFR (Non-Af Amer) 94.0 BUN/Creatinine Ratio 9.6 L Glucose 89 POC Glucose (other) 134 H Calcium 8.2 L POC Ioniz Calcium Edwige 1.22
[2018-12-16] MEDS: LAVAGE SOLUTION 4000ML PO SCH (04:44)
[2018-12-16 07:05] LABS: BUN Creatinine Ratio 11.9 (10-20); Calcium 8.6 mg/dl (8.5-10.1); Creatinine Clr Calc Pharmacy 75.1 ml/min; Est GFR (African American) 100.6; Est GFR (Non-African American) 86.8; Potassium 3.9 mmol/L (3.5-5.1)
[2018-12-16] MEDS: METOPROLOL SUCC 25MG EXT REL TAB PO SCH (07:40)
[2018-12-16 08:35] LABS: Basophils # (auto) 0.02 K/uL (0-0.2); Basophils % (auto) 0.4 %; Eosinophils % (auto) 2.1 %; Hematocrit (blood only) 39.1 % (37-47); Hemoglobin 13.1 g/dL (12.0-16.0); Immature Granulocytes # (auto) 0.01 K/uL (0.00-0.02); Immature Granulocytes % (auto) 0.2 %; Lymphocytes # (auto) 1.41 K/uL (1.2-3.4); Lymphocytes % (auto) 29.1 %; Mean Corpuscular Hgb Conc 33.5 g/dL (32-36); Mean Corpuscular Volume 92.9 fL (80-100); Mean Platelet Volume 11.1 fL (7.4-10.4); Monocytes # (auto) 0.51 K/uL (0.11-0.59); Monocytes % (auto) 10.5 %; Neutrophils # (auto) 2.79 K/uL (1.4-6.5); Neutrophils % (auto) 57.7 %; Platelet Count 265 K/uL (130-400); RDW Coefficient of Variation 12.7 % (11.5-14.5); RDW Standard Deviation 42.9 fL (36.4-46.3); Red Blood Count 4.21 M/uL (4.2-5.4); White Blood Count 4.84 K/uL (4.8-10.8)
[2018-12-16] MEDS: POTASSIUM CHLORIDE 20 MEQ TABCR PO SCH ×3 (09:02→20:55)
[2018-12-16] MEDS: LACTOBACILLUS ACIDOPHILUS (FLORANEX) TAB PO SCH ×3 (09:02→15:52)
--- NOTE | 2018-12-16 13:00 | Anesthesiology Consultation ---
Date of Service December 16, 2018 Assessment & Plan (1) Encounter for pre-operative examination: Chart Review Chart Review: Acceptable Risk for Surgery Consults Requested none ASA ASA3 Proposed Anesthesia Anesthesia Type: MAC Risk / Benefits Reviewed With: PT / POA / Parent / Guardian, Accepts Plan and Informed Consent Obtained History Surgery Operation Date: 12/16/18 08:30 Proposed Procedures p Colonoscopy EGD Dr Ifeanyi Suggs Height/Weight Height: 5 ft 5 in Weight: 66.5 kg Allergies Allergy/AdvReac Type Severity Reaction Status Date / Time gluten Allergy Mild intolerance Verified 12/13/18 00:53 Medications Home Medications Medication Instructions Recorded Confirmed Last Taken No Known Home Medications 12/13/18 12/13/18 Unknown Active Medications Generic Name Dose Route Start Last Admin Trade Name Freq PRN Reason Stop Dose Admin Aspirin 81 mg 12/13/18 09:00 12/15/18 07:43 Ecotrin Ectab PO 01/12/19 08:59 81 mg QAM KATTY Administration Ciprofloxacin 500 mg 12/15/18 09:00 12/15/18 19:59 Cipro PO 12/25/18 08:59 500 mg BID KATTY Administration Heparin Sodium (Porcine) 5,000 units 12/13/18 08:45 12/15/18 04:55 Heparin Sodium (Porcine) SQ 01/12/19 08:44 Not Given Q8 KATTY Lactobacillus Acidophilus 4 tab 12/14/18 12:00 12/16/18 10:54 Floranex PO 01/13/19 11:59 Not Given TIDM KATTY Metoprolol Succinate 12.5 mg 12/14/18 12:30 12/16/18 07:40 Toprol Xl PO 01/13/19 12:29 12.5 mg QAM KATTY Administration Nitroglycerin 0.4 mg 12/12/18 23:32 12/12/18 23:49 Nitrostat SL 01/11/19 23:31 0.4 mg UD PRN Administration Chest Pain Potassium Chloride 40 meq 12/13/18 09:00 12/16/18 13:12 Klor-Con M20 PO 01/12/19 08:59 Not Given TID KATTY Past Medical History Medical History Apical variant hypertrophic cardiomyopathy History of Lyme disease Atypical chest pain (Acute) Acute hypokalemia (Acute) Acute renal failure (Acute) Celiac disease H/O: hysterectomy Exercise / Class Metabolic Activity II 4-5 Yardwork/Stairs/Walk up hill Past Anesthesia History No Hx of Anesthesia Complications and No Family Hx of Anesthesia Complications History of PONV No Hx of PONV and No Hx of Motion Sickness Social History Smoking Status: Light tobacco smoker Hx Alcohol Use: No Hx Substance Use: No Physical Exam Vital Signs Last Vital Signs Temp 97.7 F 12/16/18 13:20 Pulse 55 L 12/16/18 13:20 Resp 16 12/16/18 13:20 BP 141/75 H 12/16/18 13:20 Pulse Ox 99 12/16/18 13:20 ENMT Mouth: no dentition abnormality Thyromental Distance: > or= 3.5 Finger Breadths Mallampati Class: II Neck normal visual inspection Respiratory normal respiratory effort Auscultation: lungs clear to auscultation bilaterally Cardiovascular Rate/Rhythm: regular rate and regular rhythm Testing Laboratory Results 12/16/18 05:55 12/16/18 05:53 PT 9.9 Seconds (9.0-12.0) 12/13/18 08:06 INR 1.0 (0.9-1.1) 12/13/18 08:06 12/15/18 18:20 Escherichia coli Shiga Toxins Test - Preliminary Stool Stool Culture - Preliminary No Salmonella isolated to date, No Shigella isolated to date, No Campylobacter jejuni isolated to date. 12/14/18 09:40 Escherichia coli Shiga Toxins Test - Preliminary Stool Stool Culture - Preliminary No Salmonella isolated to date, No Shigella isolated to date, No Campylobacter jejuni isolated to date. Electrocardiogram Date: 12/15/18 Sinus bradycardia Low voltage QRS Borderline ECG When compared with ECG of 14-DEC-2018 06:47, Nonspecific T wave abnormality, improved in Inferior leads Nonspecific T wave abnormality no longer evident in Anterior leads Confirmed by Casey Hall ([id number]) on 12/15/2018 4:12:00 PM Chest X-Ray Date: 12/13/18 Findings: + NAD Echocardiogram Date: 12/13/18 EF: 65-70% Apical hypertrophy is present Mild MR
--- NOTE | 2018-12-16 13:14 | History & Physical Bridge Note ---
Date of Service December 16, 2018 History & Physical Bridge Note I have examined the patient, reviewed the History & Physical and in the interval since the performance of the History & Physical I have noted the following changes of clinical significance: no changes noted. We are planning to do upper endoscopy and colonoscopy today for evaluation of diarrhea. The patient does have a prior serologic diagnosis of celiac disease. We are planning to do duodenal biopsies in addition to a colonoscopy today. We have discussed the risks and benefits of the procedures to include bleeding, infection, perforation, pain and need for follow-up exams.
[2018-12-16] MEDS ORDERED: MIDAZOLAM HCL 1 MG/ML 2ML VIAL ONE (13:56)
[2018-12-16] MEDS ORDERED: LIDOCAINE HCL 2% 2 ML VIAL/AMP(20MG/ML) INFIL ONE (13:57)
[2018-12-16] MEDS ORDERED: ONDANSETRON INJ 2 MG/ML 2 ML VIAL ONE (13:57)
[2018-12-16] MEDS ORDERED: PROPOFOL IV EMULSION 10 MG/ML 20 ML VIAL IV ONE (13:57)
--- NOTE | 2018-12-16 15:08 | GI REPORT ---
Patient Name: Monica Pratt Procedure Date: 12/16/2018 1:54 PM Date of : 1965 Admit Type: Inpatient Age: 53 Gender: Female Attending MD: Nabor Suggs DO Procedure: Upper GI endoscopy Providers: Nabor Suggs DO Referring MD: Sridhar Martins Indications: Suspected celiac disease, Diarrhea Medicines: Monitored Anesthesia Care Complications: No immediate complications. Estimated blood loss: Minimal. Estimated Blood Loss: Estimated blood loss was minimal. Procedure: Pre-Anesthesia Assessment: - Prior to the procedure, a History and Physical was performed, and patient medications, allergies and sensitivities were reviewed. The patient's tolerance of previous anesthesia was reviewed. - The risks and benefits of the procedure and the sedation options and risks were discussed with the patient. All questions were answered and informed consent was obtained. - Patient identification and proposed procedure were verified prior to the procedure by the physician, the nurse and the manager of human resources. The procedure was verified in the procedure room. - Pre-procedure physical examination revealed no contraindications to sedation. - ASA Grade Assessment: II - A patient with mild systemic disease. - After reviewing the risks and benefits, the patient was deemed in satisfactory condition to undergo the procedure. - The anesthesia plan was to use monitored anesthesia care (MAC). - Immediately prior to administration of medications, the patient was re-assessed for adequacy to receive sedatives. - The heart rate, respiratory rate, oxygen saturations, blood pressure, adequacy of pulmonary ventilation, and response to care were monitored throughout the procedure. - The physical status of the patient was re-assessed after the procedure. After obtaining informed consent, the endoscope was passed under direct vision. Throughout the procedure, the patient's blood pressure, pulse, and oxygen saturations were monitored continuously. The scope was introduced through the mouth, and advanced to the third part of duodenum. The upper GI endoscopy was accomplished without difficulty. The patient tolerated the procedure well. Findings: The examined esophagus was normal. A small hiatal hernia was found. The proximal extent of the gastric folds (end of tubular esophagus) was 33 cm from the incisors. The hiatal narrowing was 35 cm from the incisors. The Z-line was 33 cm from the incisors. The examined duodenum was normal. Biopsies for histology were taken with a cold forceps for evaluation of celiac disease. Estimated blood loss was minimal. Diffuse mild inflammation characterized by congestion (edema) and granularity was found in the entire examined stomach. Biopsies were taken with a cold forceps for histology. Estimated blood loss was minimal. Impression: - Normal esophagus. - Small hiatal hernia. - mild gastritis - Normal examined duodenum. Biopsied. Recommendation: - Perform a colonoscopy today. - Await pathology results. Nabor Suggs D.O. Nabor Suggs, 12/16/2018 3:08:00 PM This report has been signed electronically. Note Initiated On: 12/16/2018 1:54 PM Number of Addenda: 0 I attest to the content of the Intraoperative Record and orders documented therein, exceptions below {[id number]}
--- NOTE | 2018-12-16 15:11 | GI REPORT ---
Patient Name: Monica Pratt Procedure Date: 12/16/2018 1:53 PM Date of : 1965 Admit Type: Inpatient Age: 53 Gender: Female Attending MD: Nabor Suggs DO Procedure: Colonoscopy Providers: Nabor Suggs DO Referring MD: Sridhar Martins Indications: Chronic diarrhea Medicines: Monitored Anesthesia Care Complications: No immediate complications. Estimated blood loss: Minimal. Estimated Blood Loss: Estimated blood loss was minimal. Procedure: Pre-Anesthesia Assessment: - Prior to the procedure, a History and Physical was performed, and patient medications, allergies and sensitivities were reviewed. The patient's tolerance of previous anesthesia was reviewed. - The risks and benefits of the procedure and the sedation options and risks were discussed with the patient. All questions were answered and informed consent was obtained. - Patient identification and proposed procedure were verified prior to the procedure by the physician, the nurse and the printing machine operator. The procedure was verified in the procedure room. - Pre-procedure physical examination revealed no contraindications to sedation. - ASA Grade Assessment: II - A patient with mild systemic disease. - After reviewing the risks and benefits, the patient was deemed in satisfactory condition to undergo the procedure. - The anesthesia plan was to use monitored anesthesia care (MAC). - Immediately prior to administration of medications, the patient was re-assessed for adequacy to receive sedatives. - The heart rate, respiratory rate, oxygen saturations, blood pressure, adequacy of pulmonary ventilation, and response to care were monitored throughout the procedure. - The physical status of the patient was re-assessed after the procedure. After I obtained informed consent, the scope was passed under direct vision. Throughout the procedure, the patient's blood pressure, pulse, and oxygen saturations were monitored continuously. The scope was introduced through the anus and advanced to the terminal ileum. The colonoscopy was performed without difficulty. The patient tolerated the procedure well. The quality of the bowel preparation was good. Findings: The perianal and digital rectal examinations were normal. Pertinent negatives include normal sphincter tone. The terminal ileum appeared normal. Normal mucosa was found in the entire colon. Fluid aspiration was performed through the scope suction channel. Sample(s) were sent for bacterial cultures, giardia and ova and parasites. Biopsies for histology were taken with a cold forceps from the entire colon for evaluation of microscopic colitis. Estimated blood loss was minimal. Internal hemorrhoids were found during retroflexion. The hemorrhoids were mild. The exam was otherwise without abnormality. Impression: - The examined portion of the ileum was normal. - Normal mucosa in the entire examined colon. Fluid aspiration performed. Biopsied. - Internal hemorrhoids. - The examination was otherwise normal. Recommendation: - [facility] patient to [facility] for [facility] care. - Advance diet as tolerated today. - Await pathology results. - Repeat colonoscopy in 10 years for screening purposes. Nabor Suggs D.O. Nabor Suggs, 12/16/2018 3:10:51 PM This report has been signed electronically. Note Initiated On: 12/16/2018 1:53 PM Number of Addenda: 0 I attest to the content of the Intraoperative Record and orders documented therein, exceptions below {[id number]}
--- NOTE | 2018-12-16 15:18 | Anesthesiology Progress Note ---
Date of Service December 16, 2018 Anesthesia Post Procedure Vital Signs Vital Signs: Temp Pulse Pulse Resp BP Pulse Ox 12/16/18 14:57 58 L 16 99/60 L 95 12/16/18 13:20 97.7 F 55 L 16 141/75 H 99 12/16/18 11:39 98.2 F 50 L 16 129/54 L 97 12/16/18 08:00 49 L 12/16/18 07:57 97.5 F L 44 L 20 124/68 98 12/16/18 04:39 97.7 F 56 L 17 140/64 97 12/15/18 23:39 97.7 F 56 L 15 117/63 97 12/15/18 21:50 64 12/15/18 20:06 97.3 F L 58 L 20 122/65 97 12/15/18 15:37 97.9 F 56 L 20 101/55 L 98 Pain Intensity Chest: Pain Intensity: 0 Transfer of Care Handoff Completed per policy Notes Mental Status: alert / awake / arousable and participated in evaluation Patient Amnestic to Procedure: Yes Nausea / Vomiting: adequately controlled Pain: adequately controlled Airway Patency, RR, SpO2: stable & adequate BP & HR: stable & adequate Hydration State: stable & adequate Anesthetic Complications: no major complications apparent and Pt Satisfied with anesthetic care
[2018-12-16] MEDS: ASPIRIN 81 MG ECTAB PO SCH (15:52)
[2018-12-16] MEDS: CIPROFLOXACIN 500 MG TAB PO SCH ×2 (15:52→20:55)
[2018-12-16] MEDS: PANTOprazole 40 MG TAB PO SCH (18:03)
--- NOTE | 2018-12-16 20:38 | Hospitalist Progress Note ---
Date of Service December 16, 2018 Assessment & Plan (1) Chest pain: troponins negative EKG no acute ischemia echo(+) apical hypertrophy Cardiology consulted metoprolol XL 12.5mg po daily ASA 81mg po daily outpatient exercise stress test and 14 day Zio patch monitoring Acute Renal Failure likely secondary to Prerenal Etiology from Diarrhea - crea normalized after IV LR given Diarrhea - still persistent despite being on Cipro twice daily and Imodium as needed - C diff negative - stool cultures negative -GI consulted Status post EGD and colonoscopy Positive for mild gastritis, small hiatal hernia, internal hemorrhoids -Diarrhea is improving -Continue Cipro twice daily, Imodium as needed Hypokalemia -Continue p.o. potassium DVT prophylaxis Heparin SC Disposition Anticipate discharge to home tomorrow Subjective Follow-up for chest pain, diarrhea Status post EGD and colonoscopy States that she feels fine today overall No diarrhea this afternoon no abdominal pain Because of chest pain, no shortness of breath In good spirits Denies other symptoms Review of Systems Review of Systems: All systems reviewed & are unremarkable except as noted in HPI & below Physical Exam Physical Exam: General- oriented x 3, not in distress, speaks in sentences with no effort or accessory muscle use Eyes- anicteric Neck- no JVD Lungs- clear breath sounds bilaterally, no wheezing, no crackles Heart- normal rate, regular rhythm; no murmurs Abdomen- normal bowel sounds, nondistended, soft, nontender Extremities- no pretibial edema, no calf tenderness Neuro- alert, oriented x 3; no gross focal neurologic deficits Skin- warm & dry Results & Data Vital Signs (Past 12 Hours) Vital Signs Temp Pulse Pulse Resp BP Pulse Ox 12/16/18 20:02 55 L 12/16/18 19:55 36.5 C 54 L 21 131/67 94 12/16/18 15:54 36.6 C 53 L 17 146/71 H 99 12/16/18 15:27 49 L 16 131/70 98 12/16/18 15:13 49 L 16 123/77 96 12/16/18 14:57 58 L 16 99/60 L 95 12/16/18 13:20 36.5 C 55 L 16 141/75 H 99 12/16/18 11:39 36.8 C 50 L 16 129/54 L 97
[2018-12-17 07:11] LABS: BUN Creatinine Ratio 23.9 (10-20); Calcium 8.3 mg/dl (8.5-10.1); Creatinine Clr Calc Pharmacy 75.1 ml/min; Est GFR (African American) 100.6; Est GFR (Non-African American) 86.8; Potassium 4.7 mmol/L (3.5-5.1)
[2018-12-17] MEDS: METOPROLOL SUCC 25MG EXT REL TAB PO SCH (07:58)
[2018-12-17] MEDS: ASPIRIN 81 MG ECTAB PO SCH (07:59)
[2018-12-17] MEDS: LACTOBACILLUS ACIDOPHILUS (FLORANEX) TAB PO SCH (07:59)
[2018-12-17] MEDS: CIPROFLOXACIN 500 MG TAB PO SCH (07:59)
[2018-12-17] MEDS: PANTOprazole 40 MG TAB PO SCH (08:00)
[2018-12-17] MEDS: POTASSIUM CHLORIDE 20 MEQ TABCR PO SCH (08:00)
--- NOTE | 2018-12-17 10:11 | Anesthesiology Progress Note ---
Date of Service December 17, 2018 Anesthesia Post Procedure Vital Signs Vital Signs: Temp Pulse Pulse Resp BP Pulse Ox 12/17/18 07:20 36.4 C L 53 L 18 103/67 100 12/17/18 06:10 49 L 12/17/18 03:40 36.5 C 54 L 20 107/59 L 95 12/16/18 23:48 36.4 C L 55 L 18 116/55 L 96 12/16/18 20:02 55 L 12/16/18 19:55 36.5 C 54 L 21 131/67 94 12/16/18 15:54 36.6 C 53 L 17 146/71 H 99 12/16/18 15:27 49 L 16 131/70 98 12/16/18 15:13 49 L 16 123/77 96 12/16/18 14:57 58 L 16 99/60 L 95 12/16/18 13:20 36.5 C 55 L 16 141/75 H 99 12/16/18 11:39 36.8 C 50 L 16 129/54 L 97 Pain Intensity Chest: Pain Intensity: 0 Notes Mental Status: alert / awake / arousable and participated in evaluation Nausea / Vomiting: adequately controlled Pain: adequately controlled Airway Patency, RR, SpO2: stable & adequate BP & HR: stable & adequate Hydration State: stable & adequate
--- NOTE | 2018-12-17 10:19 | Hospitalist Progress Note ---
Date of Service December 17, 2018 Assessment & Plan (1) Chest pain: troponins negative EKG no acute ischemia echo(+) apical hypertrophy Cardiology consulted metoprolol XL 12.5mg po daily started but patient heart rate was in the low 50s, discontinued Recommendations: ASA 81mg po daily, advised to take with a full stomach outpatient exercise stress test and 14 day Zio patch monitoring Follow-up with cardiology clinic in 1 to 2 weeks Acute Renal Failure secondary to Prerenal Etiology from Diarrhea Nephrology consulted - crea normalized after IV LR given Hypokalemia Secondary to GI losses Placed with p.o. potassium, resolved Diarrhea secondary to gastroenteritis, viral versus bacterial etiology - still persistent despite being on Cipro twice daily and Imodium as needed - C diff negative - stool cultures negative -GI consulted Status post EGD and colonoscopy Positive for mild gastritis, small hiatal hernia, internal hemorrhoids -Diarrhea resolved -Discharge plan: -Continue Cipro 500 mg p.o. twice daily x4 more days to complete 7 days therapy Protonix 40 mg p.o. daily Follow-up biopsy reports from EGD and colonoscopy Follow-up with GI in 2 weeks DVT prophylaxis Heparin SC Disposition Discharge to home Follow-up with PCP in 1 week as outlined in discharge instructions Follow-up with cardiology Dr. Gamez 1 to 2 weeks, will need outpatient exercise stress test and 14 days Zio patch monitoring Follow-up with gastroenterology Dr. Suggs/ SRIDHAR Reid in 2 weeks Case discussed with patient and her sister in detail at length All questions answered Patient understanding, comfortable, agreeable with plan of care Subjective Follow-up for diarrhea, chest pain Seen sitting up in bed, comfortable, in good spirits States she feels much better overall No diarrhea since yesterday afternoon, no abdominal pain, tolerating diet well No recurrence of chest pain since admission, no shortness of breath palpitations dizziness Ambulating in the room with no problems She feels good, ready and would like to be discharged today Review of Systems Review of Systems: All systems reviewed & are unremarkable except as noted in HPI & below Physical Exam Physical Exam: General- oriented x 3, not in distress, speaks in sentences with no effort or accessory muscle use Eyes- anicteric Neck- no JVD Lungs- clear BS BL , no crackles, no wheezing Heart-heart rate 60, regular rhythm; no murmurs Abdomen- normal bowel sounds, nondistended, soft, nontender Extremities- no pretibial edema, no calf tenderness Neuro- alert, oriented x 3; no gross focal neurologic deficits Skin- warm & dry Results & Data Vital Signs (Past 12 Hours) Vital Signs Temp Pulse Pulse Resp BP Pulse Ox 12/17/18 07:20 36.4 C L 53 L 18 103/67 100 12/17/18 06:10 49 L 12/17/18 03:40 36.5 C 54 L 20 107/59 L 95 12/16/18 23:48 36.4 C L 55 L 18 116/55 L 96 Laboratory Results Laboratory Results - last 24 hr 12/16/18 12/16/18 12/17/18 14:40 14:40 06:06 Sodium 139 Potassium 4.7 D Chloride 110 H Carbon Dioxide 24 Anion Gap 5.0 BUN 19 H D Creatinine 0.78 Est Cr Clr Drug Dosing 75.1 Est GFR ( Amer) 100.6 Est GFR (Non-Af Amer) 86.8 BUN/Creatinine Ratio 23.9 H Glucose 94 Calcium 8.3 L Stl C. diff Tox B Gene Negative Cdiff Gene Giardia Antigen Pending
--- NOTE | 2018-12-17 10:33 | Discharge Summary ---
Date of Service December 17, 2018 Admission HPI Per Admitting Provider 53-year-old female with a past medical history of Lyme disease said that she started to have chest pain this morning. Was laying around all day and when she gets the chest pain will be worse. When she got up she lost her balance and just did not feel right. He sat down and starting to get a heavy chest that was 8 out of 10 in severity, she had palpitations, pounding, shortness of breath, and both hands were tingling her labs in the emergency room showed a potassium of 2.5, showed U waves she had an elevated creatinine 2.23 as well. 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 She has a gluten allergy but no drug allergies She takes no medications Admission Exam Per Admitting Provider Gen-AAO x 3, NAD, Afebrile Head-NCAT, EOMI, PERRLA, Anicteric Sclera, No Posterior Pharyngeal Erythema Neck-Supple, No JVD, No Thyromegaly, No Masses, No LAD, No Bruits Lungs-Clear to Auscultation Bilaterally, No Rales, No Rhonchi, No Wheezing, No Crepitus Chest-No S4, +S1, +S2, No S3, No Murmurs, No Rubs, No Gallops, No Ectopy Abdomen-Soft, Bowel Sounds Present, Non Tender, Non Distended, No Hepatomegaly, No Splenomegaly, No Palpable Masses, No Rebound, No Rigidity, No Guarding Musculoskeletal-Full Range of Motion Bilaterally, No CVAT Extremities-No Cyanosis, No Clubbing, No Edema Nuero-Cranial Nerves II-XII grossly intact, Motor WNL, DTRs WNL, Strength WNL, Non Focal Psych-Normal Mood Principal Diagnosis Acute gas enteritis, with severe dehydration, acute kidney injury, hypokalemia, chest pain Discharge Exam General- oriented x 3, not in distress, speaks in sentences with no effort or accessory muscle use Eyes- anicteric Neck- no JVD Lungs- clear BS BL , no crackles, no wheezing Heart-heart rate 60, regular rhythm; no murmurs Abdomen- normal bowel sounds, nondistended, soft, nontender Extremities- no pretibial edema, no calf tenderness Neuro- alert, oriented x 3; no gross focal neurologic deficits Skin- warm & dry Discharge Data Allergies Allergy/AdvReac Type Severity Reaction Status Date / Time gluten Allergy Mild intolerance Verified 12/13/18 00:53 Consultations 12/13/18 00:23 ED Decision to Admit Stat 12/13/18 01:42 Consult Cardiology Routine Consult Nephrology Routine 12/15/18 10:50 Consult Gastroenterology Routine Procedures Performed Operation Date: 12/16/18 08:30 Actual Procedures p EGD Biopsy Cytology - Nabor Suggs Findings: The examined esophagus was normal. A small hiatal hernia was found. The proximal extent of the gastric folds (end of tubular esophagus) was 33 cm from the incisors. The hiatal narrowing was 35 cm from the incisors. The Z-line was 33 cm from the incisors. The examined duodenum was normal. Biopsies for histology were taken with a cold forceps for evaluation of celiac disease. Estimated blood loss was minimal. Diffuse mild inflammation characterized by congestion (edema) and granularity was found in the entire examined stomach. Biopsies were taken with a cold forceps for histology. Estimated blood loss was minimal. Impression: - Normal esophagus. - Small hiatal hernia. - mild gastritis - Normal examined duodenum. Biopsied. Recommendation: - Perform a colonoscopy today. - Await pathology results. Colonoscopy Biopsy Cytology - Nabor Suggs Impression: - The examined portion of the ileum was normal. - Normal mucosa in the entire examined colon. Fluid aspiration performed. Biopsied. - Internal hemorrhoids. - The examination was otherwise normal. Recommendation: - Return patient to [facility] for [facility] care. - Advance diet as tolerated today. - Await pathology results. - Repeat colonoscopy in 10 years for screening purposes. Nabor Suggs D.O. Nabor Suggs, DO Hospital Course (1) Chest pain: troponins negative EKG no acute ischemia echo: Ejection fraction 65 to 70%, apical hypertrophy is present, mild mitral regurgitation, normal LV relaxation Cardiology Dr. Gamez consulted metoprolol XL 12.5mg po daily started but patient heart rate was in the low 50s, thus discontinued Recommendations: ASA 81mg po daily, advised to take with a full stomach outpatient exercise stress test and 14 day Zio patch monitoring Follow-up with cardiology clinic in 1 to 2 weeks Diarrhea secondary to gastroenteritis, Viral versus Bacterial etiology - still persistent despite being on Cipro twice daily and Imodium as needed - C diff negative - stool cultures negative - GI consulted- Dr. Suggs Status post EGD and colonoscopy Positive for mild gastritis, small hiatal hernia, internal hemorrhoids Biopsies taken -Diarrhea resolved Patient significantly improved -Discharge plan: Continue Cipro 500 mg p.o. twice daily x4 more days to complete 7 days therapy Protonix 40 mg p.o. daily Follow up biopsy reports from EGD and colonoscopy Follow-up with GI in 2 weeks Repeat colonoscopy in 10 years for surveillance Acute Renal Failure secondary to Prerenal Etiology from Diarrhea Nephrology consulted - crea normalized after IV LR given Hypokalemia Secondary to GI losses Placed with p.o. potassium, resolved Disposition Discharge to home Follow-up with PCP in 1 week as outlined in discharge instructions Follow-up with cardiology Dr. Gamez 1 to 2 weeks, will need outpatient exercise stress test and 14 days Zio patch monitoring Follow-up with gastroenterology Dr. Suggs/ SRIDHAR Reid in 2 weeks Case discussed with patient and her sister in detail at length All questions answered Patient understanding, comfortable, agreeable with plan of care Total Time Total Time Spent Total Time Spent (In Minutes): 45 minutes Discharge Plan Discharge Items Patient Disposition: Home - Self-Care Reason For Visit: CHEST PAIN, FATIGUE, PALPITATIONS, RENAL FAILURE Discharge Diagnosis: Gastroenteritis, Kidney injury, Hypokalemia, Chest pain Condition: Fair Discharge Goals: Improve disease control and Therapeutic intervention Activity: As commented below Activity Comment: No heavy exertion until reevaluated by primary care physician Lifting: Wait until after follow-up appointment Exercise/Sports: Wait until after follow-up appointment Driving/Machine Use Comment: No driving until reevaluated by primary care physician Non-emergency contact: Primary Care Provider Call non-emergency contact if: you have any medication questions, your symptoms worsen, your pain is not controlled and you have a fever Follow-up/Referrals: PCP,NO [Primary Care Provider] - Diet: Heart Healthy Addtl Provider Instructions: Please review new medication list and follow instructions carefully. Drink plenty fluids. Eat foods rich in potassium including bananas, oranges, tomatoes etc. Always take aspirin with a full stomach. Take Protonix at least 30 minutes before first meal the day. Take a probiotic daily. The cardiology clinic will be calling you soon for an appointment for exercise stress test and campus monitor placement. The gastrology clinic will be calling you soon for an appointment for follow-up. Please call your primary care physician or return to the ER immediately if with recurrence or worsening of symptoms. Prescriptions: New ciprofloxacin HCl 500 mg Tablet 500 mg PO BID 4 Days Qty: 8 RF: 0 aspirin [Ecotrin Low Strength] 81 mg Tablet,Delayed Release (Dr/Ec) 81 mg PO QAM 30 Days Qty: 30 RF: 2 pantoprazole 40 mg Tablet,Delayed Release (Dr/Ec) 40 mg PO QAM 14 Days Qty: 14 RF: 2 No Action No Known Home Medications RF: 0 Stand-Alone Forms: Work/School Release (Inpt) Discharge Orders: Discharge Order (Routine); Ordered 12/17/18 Ordered By: Sridhar Martins Admission Data Admit Date/Time: 12/13/18 01:00 Attending Provider: Alan Hope Admit Provider: Juan Levine Primary Care Provider: PCP,NO Other Providers: Juan Levine ; Franklin Gamez ; Ana Maria Lao ; Nabor Suggs ; Sridhar Martins Service: Telemetry Medical Other Interventions: Discharge Summary Assessment (RN) Last Done: 12/17/18 10:13
== END 2018-12-17 11:00 | disposition home or self-care (01) | DRG 392 ==
LOC: ED 23:14 → 2E 12-13 01:00 → SUATTDRO 12-13 01:00 → 2E 12-13 01:32 → 2N 12-17 05:21
DX: E86.0 Dehydration; A08.4 Viral intestinal infection, unspecified; I42.2 Other hypertrophic cardiomyopathy; F17.200 Nicotine dependence, unspecified, uncomplicated; E87.6 Hypokalemia; K90.0 Celiac disease; N17.9 Acute kidney failure, unspecified